=== PATIENT | male | born 1960 | race African-American/Black ===

== ENCOUNTER 2022-09-29 23:04 | Emergency (ER) | payer OTHER ==
[2022-09-29 23:23] VITALS: BP 122/75; PULSE 70; RESP 16; TEMP 98.7
--- NOTE | 2022-09-30 01:05 | CT ---
EXAMINATION TYPE: CT brain dashawnine wo con DATE OF EXAM: 09/30/2022 COMPARISON: None HISTORY: FALL ON BLOOD THINNERS CT DLP: 1407.5 mGycm Automated exposure control for dose reduction was used. Images obtained of the brain and cervical spine with no contrast. Ventricles and sulci appear normal. There is no mass effect or midline shift. No sign of intracranial hemorrhage. The calvarium is intact. The cervical vertebra show normal alignment. There is disc space narrowing and spur formation at C5-6 and C6-7. Facet joints are intact. No fracture seen. Prevertebral soft tissues are intact. No focal bone destruction. There is normal aeration of the mastoid sinuses. IMPRESSION: Spondylosis at C5-6 and C6-7. No fracture. Negative CT scan of the brain.
--- NOTE | 2022-09-30 01:08 | XR ---
EXAMINATION TYPE: XR shoulder complete RT DATE OF EXAM: 09/30/2022 COMPARISON: NONE HISTORY: Fall. Pain TECHNIQUE: 3 views FINDINGS: There is narrowing of the glenohumeral joint space. There is spurring of the humeral head a nd glenoid. No fracture seen. AC joint is intact. IMPRESSION: There is some osteoarthritis. No fracture.
[2022-09-30] MEDS ORDERED: ACETAMINOPHEN TAB 500 MG TAB PO STA (01:46)
--- NOTE | 2022-09-30 01:50 | ED ---
Fall HPI - General Chief Complaint: Fall Stated Complaint: Fall, head injury Time Seen by Provider: 09/30/22 01:28 Source: patient, RN notes reviewed Mode of arrival: ambulatory - History of Present Illness Initial Comments: 62-year-old male alert and oriented 4 presents to the emergency from [place] after falling backwards in a chair hitting his head. Patient is on Eliq uis and was sent to the emergency room for evaluation. Denies any loss of consciousness. He is also complaining of right shoulder pain. 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 Has a history of asthma, congestive heart failure, hypertension and defibrillator MD Complaint: fall -: hour(s) Fall From: chair Place Fall Occurred: other ([place]) Loss of Consciousness: none Prolonged Down Time?: no Symptoms Prior to Fall: none Location: head Location - Extremities: Right: Shoulder Severity scale (1-10): 10 - Related Data Allergies Allergy/AdvReac Type Severity Reaction Status Date / Time shellfish derived [Shellfish] Allergy Anaphylaxis Verified 09/29/22 23:24 Review of Systems ROS Statement: Those systems with pertinent positive or pertinent negative responses have been documented in the HPI. ROS Other: All systems not noted in ROS Statement are negative. Past Medical History Past Medical History: Asthma, Heart Failure, Hypertension History of Any Multi-Drug Resistant Organisms: None Reported Additional Past Surgical History / Comment(s): defibrillator Past Psychological History: Anxiety Smoking Status: Current every day smoker Past Alcohol Use History: None Reported Past Drug Use History: Heroin General Exam Limitations: no limitations General appearance: alert, in no apparent distress Head exam: Present: atraumatic Eye exam: Present: EOMI, other (Blind left eye). Absent: periorbital swelling Neck exam: Present: full ROM. Absent: tenderness, meningismus Respiratory exam: Present: normal lung sounds bilaterally. Absent: respiratory distress, accessory muscle use Cardiovascular Exam: Present: regular rate GI/Abdominal exam: Present: soft. Absent: rigid Extremities exam: Present: normal capillary refill. Absent: pedal edema Back exam: Present: full ROM. Absent: tenderness, CVA tenderness (R), CVA tenderness (L), rash noted Neurological exam: Present: alert, oriented X3, normal gait Psychiatric exam: Present: normal affect, normal mood Skin exam: Present: warm, dry, normal color. Absent: cyanosis, diaphoretic, petechiae, pallor Course Vital Signs 09/29/22 23:14 Temperature 98.7 F Pulse Rate 70 Respiratory 16 Rate Blood Pressure 122/75 O2 Sat by Pulse 99 Oximetry Medical Decision Making - Medical Decision Making Vital signs are stable patient is up and ambulatory with steady gait. No evidence of skull fracture, no hematoma. No loss of consciousness. Patient is on eliquis therefore CT was ordered. X-ray of the right shoulder interpreted by me shows no evidence of fracture dislocation. No widened AC joint. Radiologist interpretation osteoarthritis no evidence of fracture. CT of the brain interpreted by me shows no evidence of skull fracture, no endocranial bleed or midline shift. Radiologist interpretation spondylosis of C5-6 and C6 7 no fracture. No mass effect or midline shift. No intracranial hemorrhage. Calvarium is intact. Patient was given lidoderm patch for his shoulder pain and Tylenol. Case d iscussed with Dr. Serrano. He will be discharged back to [place] to continue rehab for heroin abuse. Was pt. sent in by a medical professional or institution? @ -yes [facility] Did you speak to anyone other than the patient for history? @ -no Did you review nursing and triage notes? @ -yes i agree Were old charts reviewed? @ -no Differential Diagnosis? @ -Intercranial hemorrhage, skull fracture, shoulder fracture, shoulder dislocation EKG interpreted by me (3pts min.)? @ -[none] X-rays interpreted by me (1pt min.)? @ -yes as above CT interpreted by me (1pt min.)? @ -yes as aboe U/S interpreted by me (1pt. min.)? @ -[none] What testing was considered but not performed? (CT, X-rays, U/S, labs)? Why? @ none What meds were considered but not given? Why? @ -none Did you discuss the management of the patient with other professionals? @ -no Did you reconcile home meds? @ -no Was smoking cessation discussed for >3mins.? @ -no Was critical care preformed (if so, how long)? @ -no Were there social determinants of health that impacted care today? How? (Homelessness, low income, unemployed, alcoholism, drug addiction, transportation, low edu. Level, literacy, decrease access to med. care, residential, rehab)? @ -drug addiction in rehab Was there de-escalation of care discussed even if they declined? (Discuss DNR or withdrawal of care, Hospice)? @ -no What co-morbidities impacted this encounter? (DM, HTN, Smoking, COPD, CAD, Cancer, CVA, Hep., AIDS, mental health diagnosis, sleep apnea, morbid obesity)? @ - heroin abuse over 40 years, dasthma, congestive heart failure, hypertension and defibrillator Was patient admitted / discharged? @ discharged Undiagnosed new problem with uncertain prognosis? @ -[none] Drug Therapy requiring intensive monitoring for toxicity (Heparin, Nitro, Insulin, Cardizem)? @ -no Were any procedures done? @ -no Diagnosis/symptom? @ -head injury, shoulder pain, fall Acute, or Chronic, or Acute on Chronic? @ -acute Uncomplicated (without systemic symptoms) or Complicated (systemic symptoms)? @ -Uncomplicated Side effects of treatment? @ -[none] Exacerbation, Progression, or Severe Exacerbation] @ -[no] Poses a threat to life or bodily function? @ -[no] Disposition Clinical Impression: Fall, Head injury, Shoulder pain, right, Osteoarthritis of right shoulder Disposition: HOME SELF-CARE Condition: Good Instructions (If sedation given, give patient instructions): Osteoarthritis (ED), Fall Prevention for Older Adults (ED), Head Injury (ED), Fall Prevention (ED) Additional Instructions: You can use topical anesthetic creams like Matteo-Lugo, icy hot or capsaicin creams for shoulder pain. Ice or warm packs. Physical therapy is also recommended. Return to the emergency room with any new or concerning symptoms. Follow-up with the primary care doctor next week for reevaluation. Is patient prescribed a controlled substance at d/c from ED?: No Referrals: None,Stated [Primary Care Provider] - 1-2 days Time of Disposition: 01:50
[2022-09-30] MEDS ORDERED: LIDOCAINE 5% PATCH TOPICAL SCH (09:00)
== END 2022-09-30 02:20 | disposition home or self-care (01) ==
LOC: EC 23:04
DX: S09.90XA Unspecified injury of head, initial encounter (principal); M19.011 Primary osteoarthritis, right shoulder; M47.812 Spondylosis without myelopathy or radiculopathy, cervical region; J45.909 Unspecified asthma, uncomplicated; I11.0 Hypertensive heart disease with heart failure; I50.9 Heart failure, unspecified; F41.9 Anxiety disorder, unspecified; F17.200 Nicotine dependence, unspecified, uncomplicated; F11.90 Opioid use, unspecified, uncomplicated; Z91.013 Allergy to seafood; W07.XXXA Fall from chair, initial encounter; Z79.01 Long term (current) use of anticoagulants
CPT/HCPCS: 70450; 72125; 99284